=== PATIENT | female | born 1980 | race Caucasian/White ===

== ENCOUNTER 2023-05-27 21:17 | Emergency (ER) | payer MEDICAID ==
[~2023-05-27] VITALS: Ht 162.5 cm; Wt 83.9 kg
[2023-05-27] MEDS ORDERED: NEURONTIN300 MG PO (21:42)
[2023-05-27] MEDS ORDERED: ESCITALOPRAM OX20 MG PO (21:42)
[2023-05-27 22:48] LABS: BASO # 0.1 10*3/uL (0.0-0.1); BASO % 0.6 % (0.0-1.0); EOS # 0.5 10*3/uL (0.0-0.4); EOS % 5.3 % (1.0-4.0); HEMATOCRIT 36.9 % (37.0-47.0); LYMPH # 3.5 10*3/uL (1.3-4.4); LYMPH % 41.8 % (27.0-41.0); MEAN CELL VOLUME 93.4 fl (81.0-99.0); MEAN CORPUSCULAR HGB 31.4 pg (27.0-31.0); MEAN CORPUSCULAR HGB CONC 33.6 g/dl (33.0-37.0); MEAN PLATELET VOLUME 10.6 fl (9.6-12.3); MONO # 0.4 10*3/uL (0.1-1.0); MONO % 4.5 % (3.0-9.0); NEUT % 47.6 % (47.0-73.0); PLATELET COUNT AUTOMATED 323 10*3/uL (130-400); RED BLOOD COUNT 3.95 10*6/uL (4.10-5.10); RED CELL DISTRI WIDTH 12.9 % (0-14.5); WHITE BLOOD COUNT 8.4 10*3/uL (4.8-10.8)
[2023-05-27 22:53] LABS: BILIRUBIN Negative (Negative); BLOOD Negative (Negative); CLARITY Clear (Clear); COLOR Yellow (Yellow); GLUCOSE Negative (Negative); KETONE Negative (Negative); LEUKO ESTERASE 2+ (Negative); NITRITE Negative (Negative); PH 5.5 (4.5-8.0); SPECIFIC GRAVITY 1.015 (1.001-1.030)
[2023-05-27 23:10] LABS: ALKALINE PHOSPHATASE 93 U/L (46-116); BUN 22 mg/dl (9-23); CHLORIDE 108 mmol/L (98-107); LIPASE 37 U/L (12-53); POTASSIUM 4.1 mmol/L (3.4-5.1); SGPT/ALT 7 U/L (10-49); TOTAL PROTEIN 6.4 gm/dL (6.0-8.0)
[2023-05-27 23:12] LABS: BACTERIA 2+; WBC 31-40 wbc/hpf (0-5)
[2023-05-27] MEDS ORDERED: MACROBID100 M1 PO (23:49)
== END 2023-05-27 23:54 | disposition home or self-care (01) ==
LOC: ED 21:17
PROVIDERS: Physician Assistant
DX: N39.0 Urinary tract infection, site not specified (principal); N18.32 Chronic kidney disease, stage 3b; R11.2 Nausea with vomiting, unspecified; Z88.8 Allergy status to other drugs, medicaments and biological substances